=== PATIENT | male | born 1965 | race Caucasian/White ===

== ENCOUNTER 2020-10-22 20:21 | Observation (INO) | payer OTHER ==
[~2020-10-22] VITALS: Ht 167.6 cm; Wt 79.4 kg
[2020-10-22] MEDS ORDERED: ONDANSETRON HCL INJ 2MG/ML 2ML 2 MG/ML VIAL IV STA (20:49)
[2020-10-22] MEDS ORDERED: SODIUM CHLORIDE 0.9% 1000ML 1,000 ML IV ONE (21:00)
[2020-10-22] MEDS ORDERED: PANTOPRAZOLE 40 MG 10ML VIAL IV STA (21:09)
[2020-10-22 21:30] LABS: BASOPHILS % 0.2 % (0.0-1.0); HEMATOCRIT 41.5 % (38.2-49.6); HEMOGLOBIN 14.8 g/dL (14.0-18.0); LYMPHOCYTES # (AUTO) 2.5 (1.0-3.2); LYMPHOCYTES % 18.8 % (18.0-39.1); MEAN CORPUSCULAR HEMOGLOBIN 29.4 pg (28-32); MEAN CORPUSCULAR HGB CONC 35.7 g/dL (31-35); MEAN CORPUSCULAR VOLUME 82.3 fL (81-99); MONOCYTES # (AUTO) 0.8 (0.2-0.8); MONOCYTES % 6.1 % (4.4-11.3); NEUTROPHILS % 74.4 % (38.7-80.0); PLATELET COUNT 209 x10e3/uL (140-360); RED BLOOD COUNT 5.04 x10e6/uL (4.3-5.7); RED CELL DISTRIBUTION WIDTH 12.2 % (11.7-14.4)
[2020-10-22 21:49] LABS: AMYLASE 75 U/L (25-125); LIPASE 19 U/L (8-78)
[2020-10-22 21:51] LABS: ALANINE AMINOTRANSFERASE 12 IU/L (0-55); ALBUMIN 4.7 g/dL (3.5-5.0); ALBUMIN/GLOBULIN RATIO 1.6 (0.8-2.0); ALKALINE PHOSPHATASE 95 IU/L (40-150); ANION GAP 12.9 mmol/L (8-16); BLOOD UREA NITROGEN 10 mg/dL (7-26); BUN/CREATININE RATIO 11 (6-25); CALCIUM 9.8 mg/dL (8.4-10.2); CARBON DIOXIDE 29 mmol/L (22-29); CHLORIDE 99 mmol/L (98-107); CREATINE KINASE 54 IU/L (30-200); CREATININE, SERUM 0.92 mg/dL (0.72-1.25); EST GLOMERULAR FILTRATION RATE > 60 ML/MIN (60-); GLUCOSE 117 mg/dL (74-118); POTASSIUM 3.9 mmol/L (3.5-5.1); SODIUM 137 mmol/L (136-145)
[2020-10-23] VITALS (9 sets, daily range): BP systolic 110–155; BP diastolic 57–73
[2020-10-23] MEDS ORDERED: PROMETHAZINE HCL (IM) 25 MG/ML VIAL IM ONE
[2020-10-23] MEDS ORDERED: ONDANSETRON HCL INJ 2MG/ML 2ML 2 MG/ML VIAL IV PRN (00:15)
[2020-10-23] MEDS ORDERED: PROMETHAZINE HCL (IM) 25 MG/ML VIAL IM PRN (00:15)
[2020-10-23] MEDS: SODIUM CHLORIDE 0.9% 1000ML 1,000 ML IV SCH ×2 (02:48→08:22)
[2020-10-23] MEDS ORDERED: HYDROXYZINE HCL10 MG PO (03:58)
[2020-10-23] MEDS ORDERED: LORATADINE10 MG PO (03:58)
[2020-10-23] MEDS ORDERED: LEVOTHYROXINE50 MCG PO (03:58)
[2020-10-23] MEDS ORDERED: LEXAPRO20 MG PO (03:58)
[2020-10-23] MEDS ORDERED: BUSPIRONE HCL15 MG PO (03:58)
[2020-10-23] MEDS ORDERED: BACLOFEN10 MG PO (03:58)
[2020-10-23] MEDS ORDERED: ONDANSETRON ODT4 MG PO (03:58)
[2020-10-23] MEDS ORDERED: MORPHINE SULFAT30 M5 PO (04:04)
[2020-10-23] MEDS: HYDROMORPHONE 1MG/1ML INJ IV PRN ×4 (04:15→21:15)
[2020-10-23] MEDS ORDERED: ONDANSETRON HCL INJ 2MG/ML 2ML 2 MG/ML VIAL ONE ×2 (04:19→13:01)
[2020-10-23] MEDS ORDERED: HYDROMORPHONE 1MG/1ML INJ ONE (04:20)
[2020-10-23] MEDS ORDERED: SODIUM CHLORIDE 0.9% 50ML 50 ML ONE ×2 (05:10→11:04)
[2020-10-23] MEDS ORDERED: PIPERACILLIN/TAZOBAC 3.375 GM VIAL ONE ×2 (05:10→11:03)
[2020-10-23] MEDS: PIPERACILLIN/TAZOBAC 3.375 GM in SODIUM CHLORIDE 0.9% 50ML 50 ML IV SCH ×3 (06:00→18:32)
[2020-10-23] MEDS ORDERED: PIPER-TAZ 3.375 GM / NS 50ML IV SCH (06:00)
[2020-10-23 06:47] LABS: CLARITY,URINE CLOUDY (CLEAR); COLOR,URINE YELLOW (YELLOW); KETONES,URINE 1+ (NEGATIVE); LEUKOCYTE ESTERASE ,URINE NEGATIVE (NEGATIVE); NITRITE,URINE NEGATIVE (NEGATIVE); PROTEIN,URINE DIPSTICK NEGATIVE (NEGATIVE); URINE UROBILINOGEN 0.2 mg/dL (0.2 - 1)
[2020-10-23 07:17] LABS: BACTERIA,URINE RARE /HPF; EPITHELIAL CELLS,URINE FEW /LPF; MUCUS,URINE MANY (RARE); RBC,URINE 0-5 /HPF (0-5)
[2020-10-23] MEDS ORDERED: BUPIVACAINE 0.25% 30ML SDV ONE (12:07)
[2020-10-23] MEDS ORDERED: MIDAZOLAM HCL 2 MG/2 ML VIAL ONE (12:08)
[2020-10-23] MEDS ORDERED: FENTANYL CITRATE/PF 100MCG/2 ML INJ ONE ×2 (12:08→13:14)
[2020-10-23] MEDS ORDERED: ACETAMINOPHEN 325 MG TAB PO PRN (12:45)
[2020-10-23] MEDS: DEXTROSE 5%/0.45% SOD CHL 1,000 ML IV SCH ×2 (12:45→23:54)
[2020-10-23] MEDS ORDERED: ROCURONIUM BROMIDE 10 MG/ML 5ML VIAL IV ONE (13:01)
[2020-10-23] MEDS ORDERED: EPHEDRINE SULFATE INJ 50 MG/ML VIAL ONE (13:01)
[2020-10-23] MEDS ORDERED: LIDOCAINE HCL 2% JELLY 5 ML TUBE ONE (13:01)
[2020-10-23] MEDS ORDERED: PROPOFOL IV EMULSION 10 MG/ML 20 ML VIAL ONE (13:01)
[2020-10-23] MEDS ORDERED: DEXAMETHASONE SOD PHOS INJ 4 MG/ML VIAL ONE (13:01)
[2020-10-23] MEDS ORDERED: NEOSTIGMINE 1 MG/ML 10ML VIAL ONE (13:01)
[2020-10-23] MEDS ORDERED: GLYCOPYRROLATE INJ 0.2 MG/ML VIAL ONE (13:01)
[2020-10-23] MEDS ORDERED: LIDOCAINE HCL 2% LOCAL INJ 5 ML SDV VIAL INJ ONE (13:01)
[2020-10-23] MEDS ORDERED: SEVOFLURANE INHAL SOLN 250 ML PEN BTL ONE (13:01)
[2020-10-23] MEDS: HYDROCODONE/APAP 5MG-325MG TAB PO PRN (13:27)
[2020-10-23] MEDS ORDERED: HYDROCODONE/APAP 5MG-325MG TAB ONE (13:36)
[2020-10-23] MEDS ORDERED: ONDANSETRON HCL 4 MG ORAL DISINTEGRATING TAB PO PRN (20:15)
[2020-10-23] MEDS: BUSPIRONE HCL 5 MG TAB PO SCH (21:03)
[2020-10-23] MEDS: ONDANSETRON HCL INJ 2MG/ML 2ML 2 MG/ML VIAL IV PRN (21:15)
[2020-10-24 00:12] VITALS: BP 122/64
[2020-10-24] MEDS ORDERED: PIPERACILLIN/TAZOBAC 3.375 GM VIAL ONE ×3 (00:53→12:26)
[2020-10-24] MEDS: PIPERACILLIN/TAZOBAC 3.375 GM in SODIUM CHLORIDE 0.9% 50ML 50 ML IV SCH ×2 (00:55→06:13)
[2020-10-24] MEDS ORDERED: SODIUM CHLORIDE 0.9% 50ML 50 ML ONE ×3 (00:56→12:27)
[2020-10-24] MEDS: HYDROMORPHONE 1MG/1ML INJ IV PRN ×3 (01:15→09:32)
[2020-10-24] MEDS: ONDANSETRON HCL INJ 2MG/ML 2ML 2 MG/ML VIAL IV PRN ×2 (01:15→05:15)
[2020-10-24 04:40] VITALS: BP 117/60
[2020-10-24 05:55] LABS: BASOPHILS % 0.2 % (0.0-1.0); EOSINOPHILS % 0.2 % (0.0-6.0); HEMATOCRIT 34.7 % (38.2-49.6); HEMOGLOBIN 11.9 g/dL (14.0-18.0); LYMPHOCYTES # (AUTO) 3.3 (1.0-3.2); LYMPHOCYTES % 27.2 % (18.0-39.1); MEAN CORPUSCULAR HEMOGLOBIN 29.7 pg (28-32); MEAN CORPUSCULAR HGB CONC 34.3 g/dL (31-35); MEAN CORPUSCULAR VOLUME 86.5 fL (81-99); MONOCYTES # (AUTO) 1.2 (0.2-0.8); MONOCYTES % 9.7 % (4.4-11.3); NEUTROPHILS # (AUTO) 7.5 (2.1-6.9); NEUTROPHILS % 62.3 % (38.7-80.0); PLATELET COUNT 161 x10e3/uL (140-360); RED BLOOD COUNT 4.01 x10e6/uL (4.3-5.7); RED CELL DISTRIBUTION WIDTH 11.9 % (11.7-14.4)
[2020-10-24 06:11] LABS: ALANINE AMINOTRANSFERASE 11 IU/L (0-55); ALBUMIN 3.4 g/dL (3.5-5.0); ALBUMIN/GLOBULIN RATIO 1.5 (0.8-2.0); ALKALINE PHOSPHATASE 64 IU/L (40-150); ANION GAP 10.5 mmol/L (8-16); BLOOD UREA NITROGEN 15 mg/dL (7-26); BUN/CREATININE RATIO 19 (6-25); CALCIUM 8.3 mg/dL (8.4-10.2); CARBON DIOXIDE 28 mmol/L (22-29); CHLORIDE 105 mmol/L (98-107); CREATININE, SERUM 0.81 mg/dL (0.72-1.25); EST GLOMERULAR FILTRATION RATE > 60 ML/MIN (60-); GLUCOSE 111 mg/dL (74-118); POTASSIUM 3.5 mmol/L (3.5-5.1); SODIUM 140 mmol/L (136-145)
[2020-10-24 08:15] VITALS: BP 119/65
[2020-10-24 08:16] VITALS: BP 117/60
[2020-10-24] MEDS ORDERED: BACLOFEN 10 MG TAB PO SCH (09:00)
[2020-10-24] MEDS ORDERED: LORATADINE 10 MG TAB PO SCH (09:00)
[2020-10-24] MEDS ORDERED: ESCITALOPRAM OXALATE 10 MG TAB PO SCH (09:00)
[2020-10-24] MEDS ORDERED: LEVOTHYROXINE SODIUM 25 MCG TABLET PO SCH (09:00)
[2020-10-24] MEDS ORDERED: HYDROXYZINE HCL 10 MG TAB PO SCH (09:00)
[2020-10-24] MEDS: BUSPIRONE HCL 5 MG TAB PO SCH ×2 (09:29→15:28)
[2020-10-24] MEDS: DEXTROSE 5%/0.45% SOD CHL 1,000 ML IV SCH (09:31)
[2020-10-24 12:30] VITALS: BP 118/67
[2020-10-24] MEDS: HYDROCODONE/APAP 5MG-325MG TAB PO PRN (13:23)
[2020-10-24] MEDS ORDERED: HYDROCODON-ACE1 EA11 PO ×2 (14:51→15:34)
[2020-10-24 16:10] VITALS: BP 138/71
== END 2020-10-24 17:01 | disposition home or self-care (01) ==
LOC: ER 21:33 → ERHOLD 10-23 00:11 → INTOOBSV 10-23 00:11 → ERHOLD 10-23 01:46 → MED/SURG 10-23 03:30
PROVIDERS: ADMIT Internal Medicine; ATTEND Internal Medicine
DX: K35.80 Unspecified acute appendicitis (principal); I10 Essential (primary) hypertension; E03.9 Hypothyroidism, unspecified; Z88.8 Allergy status to other drugs, medicaments and biological substances; M54.9 Dorsalgia, unspecified; Z20.822 Contact with and (suspected) exposure to COVID-19
CPT/HCPCS: 36415 ×2; 44970; 74176; 80053 ×2; 81001; 82150; 82550; 82553; 83690; 84484; 85025 ×2; 88304; 93005; 99284; G0378 ×2; J1100; J1170 ×2; J2001 ×2; J2250; J2405 ×2; J2543 ×2; J2704; J2710; J3010; J7030; U0002; J3410

== ENCOUNTER 2023-01-20 14:48 | Emergency (ER) | payer MEDICARE, OTHER ==
[~2023-01-20] VITALS: Ht 167.6 cm; Wt 79.4 kg
[~2023-01-20 14:48] MED LIST: BACLOFEN10 MG PO; BUSPIRONE HCL15 MG PO; HYDROCODON-ACE1 EA11 PO; HYDROXYZINE HCL10 MG PO; LEVOTHYROXINE50 MCG PO; LEXAPRO20 MG PO; LORATADINE10 MG PO; MORPHINE SULFAT30 M5 PO; ONDANSETRON ODT4 MG PO
[2023-01-20 15:20] LABS: BASOPHILS % 0.3 % (0.0-1.0); EOSINOPHILS # (AUTO) 0.1 (0.0-0.4); EOSINOPHILS % 0.4 % (0.0-6.0); HEMATOCRIT 39.3 % (38.2-49.6); HEMOGLOBIN 13.5 g/dL (14.0-18.0); LYMPHOCYTES # (AUTO) 6.2 (1.0-3.2); LYMPHOCYTES % 49.3 % (18.0-39.1); MEAN CORPUSCULAR HEMOGLOBIN 30.4 pg (28-32); MEAN CORPUSCULAR HGB CONC 34.4 g/dL (31-35); MEAN CORPUSCULAR VOLUME 88.5 fL (81-99); MONOCYTES # (AUTO) 0.7 (0.2-0.8); MONOCYTES % 5.6 % (4.4-11.3); NEUTROPHILS # (AUTO) 5.5 (2.1-6.9); NEUTROPHILS % 44.1 % (38.7-80.0); PLATELET COUNT 196 x10e3/uL (140-360); RED BLOOD COUNT 4.44 x10e6/uL (4.3-5.7); RED CELL DISTRIBUTION WIDTH 12.1 % (11.7-14.4)
[2023-01-20] MEDS ORDERED: SODIUM CHLORIDE 0.9% 1000ML 1,000 ML IV ONE (15:30)
[2023-01-20] MEDS ORDERED: ONDANSETRON HCL INJ 2MG/ML 2ML 2 MG/ML VIAL IV PRN (15:30)
[2023-01-20 15:35] LABS: ALBUMIN 4.6 g/dL (3.5-5.0); ALBUMIN/GLOBULIN RATIO 1.4 (0.8-2.0); ANION GAP 13.8 mmol/L (8-16); CALCIUM 9.6 mg/dL (8.4-10.2); CREATININE, SERUM 1.24 mg/dL (0.72-1.25); POTASSIUM 3.8 mmol/L (3.5-5.1)
[2023-01-20 15:36] LABS: MAGNESIUM 2.6 MG/DL (1.3-2.1)
[2023-01-20 17:51] VITALS: O2SAT 98
== END 2023-01-20 18:00 | disposition home or self-care (01) ==
LOC: ER 15:03
DX: R11.2 Nausea with vomiting, unspecified (principal); E86.0 Dehydration; M62.82 Rhabdomyolysis; E03.9 Hypothyroidism, unspecified; K21.9 Gastro-esophageal reflux disease without esophagitis; F41.9 Anxiety disorder, unspecified; M54.9 Dorsalgia, unspecified; G89.29 Other chronic pain; Z85.72 Personal history of non-Hodgkin lymphomas
CPT/HCPCS: 36415; 70450; 71045; 80053; 82550; 83735; 84484; 85025; 85379; 93005; 99284; J2405; J7030